=== PATIENT | female | born 1990 | race Caucasian/White ===

== ENCOUNTER 2017-01-05 12:23 | Emergency (ER) | payer SELFPAY ==
[2017-01-05 12:35] VITALS: BP 136/78
--- NOTE | 2017-01-05 12:35 | ED Physician Documentation ---
Skin Rash - HISTORIAN Historian: patient - HPI Stated Complaint: rash Chief Complaint: Skin Rash Front/Back of Body, Lg ([place]): 1 - vesicular patched rash on left side of body lower left back area Onset: days ago (3) Timing: worse Location: other (left lower back ) Identified Cause?: No Where: home Context: Medication Exposure: none Context: Food Exposure: none Context: Other Exposure: other (she has had chicken pox ) - ROS CONST: none CVS/RESP: none GI/: none MS/SKIN/LYMPH: rash - PAST HX Past History: other (gestional Diabetes ) Other History: none Surgeries/Procedures: No Immunizations: referred to PCP, other (worried her child is not UTD on immunizations) Allergies/Adverse Reactions: Allergies Allergy/AdvReac Type Severity Reaction Status Date / Time morphine Allergy Verified 01/05/17 12:36 Home Medications: Ambulatory Orders Medication Instructions Recorded Acyclovir [Zovirax] 800 mg PO DIRECTED #70 tablet 01/05/17 - SOCIAL HX Smoking History: cigarettes Alcohol Use: none Drug Use: none - FAMILY HX Family History: none - VITAL SIGNS Vital Signs: Vital Signs Temp Pulse Resp BP Pulse Ox 98.2 F 81 18 136/78 97 01/05/17 12:50 01/05/17 12:50 01/05/17 12:50 01/05/17 12:50 01/05/17 12:50 - REVIEWED ASSESSMENTS Nursing Assessment Reviewed: Yes Vitals Reviewed: Yes Skin Rash Physical Exam - EXAM General Appearance: no acute distress Skin: warm,dry, other (left lower back with vesicular patchy rash on left lower back/flank area - no drainage noted pain to any touch clothes etc ) Location: other (left lower back ) Character: vesicular Symptoms: tenderness, swelling Respiratory: no resp distress, chest non-tender, breath sounds normal CVS: reg. rate & rhythm, heart sounds nml Abdomen: non-tender Neuro/Psych: oriented x3 Discharge Clincal Impression: Herpes zoster Qualifiers: Herpes zoster complications: without complications Qualified Code(s): B02.9 - Zoster without complications Prescriptions: Acyclovir [Zovirax] 800 mg PO DIRECTED #70 tablet Referrals: Primary Doctor,No [Primary Care Provider] - 2 Days Condition: Stable Disposition: 01 HOME, SELF-CARE Decision to Admit: NO Date of Decison to Admit: 01/05/17 Decision Time: 12:43
== END 2017-01-05 12:50 | disposition home or self-care (01) ==
LOC: ED 12:23
DX: B02.9 Zoster without complications (principal)
CPT/HCPCS: 99283

== ENCOUNTER 2017-01-28 10:56 | Emergency (ER) | payer OTHER ==
[2017-01-28 11:12] VITALS: BP 121/78
--- NOTE | 2017-01-28 11:24 | ED Physician Documentation ---
General Adult - HISTORIAN Historian: patient - HPI Stated Complaint: Left foot pain Chief Complaint: General Adult Onset: days ago (1) Timing: still present Severity: moderate Further Comments: yes (Pt is a 26 yo female with injury to her L foot when a 90 lb child jumped onto her L mid-foot and landed on it with full force with his knee. No ankle pain.) - ROS CONST: no problems EYES/ENT: none CVS/RESP: none GI/: none MS/SKIN/LYMPH: other (L foot pain) - PAST HX Past History: none Surgeries/Procedures: BTL, , cholecystectomy Allergies/Adverse Reactions: Allergies Allergy/AdvReac Type Severity Reaction Status Date / Time morphine Allergy Verified 01/28/17 11:06 Home Medications: Ambulatory Orders Medication Instructions Recorded NK [NK] 01/28/17 - SOCIAL HX Smoking History: cigarettes - FAMILY HX Family History: No - VITAL SIGNS Vital Signs: Vital Signs Temp Pulse Resp BP Pulse Ox 98.1 F 72 16 121/78 98 01/28/17 11:08 01/28/17 11:08 01/28/17 11:08 01/28/17 11:08 01/28/17 11:08 - REVIEWED ASSESSMENTS Nursing Assessment Reviewed: Yes Vitals Reviewed: Yes Progress - Progress Progress: x-ray L foot: neg post-op shoe as desired NSAIDS/Tylenol ED Results Lab/Radiology - Orders Orders: ED Orders Category Date Time Status FOOT 3 VIEWS OR MORE [RAD] Stat Exams 01/28/17 Ordered General Adult Physical Exam - PHYSICAL EXAM GENERAL APPEARANCE: mild distress NECK: normal inspection, supple RESPIRATORY: no resp distress, breath sounds normal CVS: reg rate & rhythm, heart sounds normal BACK: normal inspection SKIN: warm/dry, normal color EXTREMITIES: normal range of motion, other (tenderness over mid metatarsals, no swelling or inflammation) NEURO: oriented X3, motor nml, sensation nml Discharge Clincal Impression: L foot pain Referrals: Primary Doctor,No [Primary Care Provider] - Condition: Good Disposition: 01 HOME, SELF-CARE Decision to Admit: NO Decision Time: 11:45
--- NOTE | 2017-01-28 14:57 | Diagnostic Imaging Report ---
MIKE SYED [facility] [address] [facility] [address] [address] Report Submission Date: Jan 28, 2017 11:42:40 AM CDT Patient Study Name: SHANICE RECINOS Date: Jan 28, 2017 11:21:25 AM CDT Modality Type: CR Gender: F Description: LOWER EXTREMITY : 86 Institution: [facility] Physician: MIKE SYED Examination: Plain film foot History: Injury Findings: 3 views of the foot demonstrates normal cortical margins. No fracture or dislocation. No soft tissue swelling. No joint effusion. Impression: No acute osseous process. Electronically signed on Jan 28, 2017 11:42:40 AM CDT by: Mayo BARRETT
== END 2017-01-28 11:52 | disposition home or self-care (01) ==
LOC: ED 10:56
DX: M79.672 Pain in left foot (principal)
CPT/HCPCS: 73630; 99283

== ENCOUNTER 2018-03-12 23:25 | Emergency (ER) | payer OTHER ==
[2018-03-12 23:44] VITALS: BP 140/88
[2018-03-12] MEDS ORDERED: ONDANSETRON HCL 4 MG TAB.RAPDIS PO ONE (23:58)
[2018-03-12] MEDS ORDERED: HYDROcodone /APAP 5/325 1 EACH TABLET PO ONE (23:58)
--- NOTE | 2018-03-12 23:58 | ED Physician Documentation ---
General Adult - HISTORIAN Historian: patient - HPI Stated Complaint: Left lower back pain Chief Complaint: Low Back Pain/ Injury Additional Information: Intro self as [employer]. pt presents to the ED via POV c/o Back pain since yesterday that started after she leaned over. pain 2/10 worse with movement 10/10. denies trauma. pt reports the pain as stabbing spasms. pt has tried ibuprofen, ice, and heat with the pain. Pt denies numbness or tingling, no loss of bowel or bladder control, denies urinary burning or frequency. pt denies current chest pain, dyspnea, syncope/near syncope, headache, dizziness, visual disturbances, n/v/d, fever/chills, rash, sick contacts, dysuria, trauma. melena or hematochezia, bleeding or easy bruising, change in bowel or bladder function. anxiety or depression. ROS Negative unless otherwise specified. - ROS CONST: no problems. denies: fever, chills EYES/ENT: denies: sore throat, nasal drainage, nasal congestion CVS/RESP: denies: chest pain, shortness of breath, cough GI/: denies: abdominal pain, problems urinating, vomiting, nausea, diarrhea MS/SKIN/LYMPH: back pain NEURO/PSYCH: denies: headache, dizziness, numbness, difficulty walking, anxiety, depression - PAST HX Past History: other Other History: diabetes Type 2, other (hypothyroid, hyperlipidemia anemia. ) Surgeries/Procedures: (x5), cholecystectomy, other (tubal ligation ) Allergies/Adverse Reactions: Allergies Allergy/AdvReac Type Severity Reaction Status Date / Time morphine Allergy Verified 03/12/18 23:53 Home Medications: Ambulatory Orders Medication Instructions Recorded Glimepiride [Amaryl] 4 mg PO BID 03/12/18 Levothyroxine Sodium [Synthroid] 1 tab PO DAILY 03/12/18 Lovastatin 20 mg PO DAILY 03/12/18 Vit/Iron Fum/Folic AC 1 each PO DAILY 03/12/18 [ Tablet] - SOCIAL HX Smoking History: less than 1 pack/day - FAMILY HX Family History: No - VITAL SIGNS Vital Signs: Vital Signs Temp Pulse Resp BP Pulse Ox 98.8 F 76 18 140/88 98 03/12/18 23:30 03/12/18 23:30 03/12/18 23:30 03/12/18 23:30 03/12/18 23:30 - REVIEWED ASSESSMENTS Nursing Assessment Reviewed: Yes Vitals Reviewed: Yes ED Results Lab/Radiology - Orders Orders: ED Orders Category Date Time Status UA [URINALYSIS] Routine Lab 03/12/18 Ordered URINE HCG DAILY Lab 03/12/18 23:45 Uncollected General Adult Physical Exam - PHYSICAL EXAM GENERAL APPEARANCE: no distress EENT: eye inspection normal, ENT inspection normal, pharynx normal, no signs of dehydration, NARCISO, no nystagmus, TM's nml NECK: normal inspection, thyroid normal RESPIRATORY: no resp distress, chest non-tender, breath sounds normal CVS: reg rate & rhythm, heart sounds normal, equal pulses, no murmur, no gallop, PMI nml, no JVD, no friction rub, 24 ABDOMEN: soft, no organomegaly, normal bowel sounds, no distension BACK: no CVA tenderness, other (left lower back pain/spasm ) SKIN: normal color, warm/dry, NR, INT, PAL, DR EXTREMITIES: non-tender, normal range of motion, no evidence of injury, no edema, J, [employer] D[employer] NEURO: oriented X3, motor nml, sensation nml, mood/affect nml, other (able to ambulate without difficulty) Discharge Clincal Impression: Low back strain Qualifiers: Encounter type: initial encounter Qualified Code(s): S39.012A - Strain of muscle, fascia and tendon of lower back, initial encounter UTI (urinary tract infection) Qualifiers: Urinary tract infection type: acute cystitis Hematuria presence: with hematuria Qualified Code(s): N30.01 - Acute cystitis with hematuria Referrals: Primary Doctor,No [REFERRING] - 2 Days Additional Instructions: Flexeril 10 mg: take 1/2 to one tab every 8 hours as needed for muscle spasm. may cause drowsiness, do not drink alcohol, drive, or operate machinery while taking this medication. ibuprofen 600 mg every 6 hours for inflammation. Keflex 500 mg twice a day for 7 days. Increase hydration. 1/2 your weight in ounces daily. this will help prevent Urinary tract infection. seek medical care immediately if difficult to wake, difficulty breathing, feeling faint or fainting, increased rash, chest pain, shortness of breath, or fever not controlled by tylenol/motrin or any concern. Follow up with primary care next week or before if not improving as expected. You will need your urine rechecked after your antibiotic is complete to make sure that the blood in your urine and infection as resolved. PLEASE UNDERSTAND THAT THIS IS AN EMERGENCY EVALUATION FOR YOUR COMPLAINT AND BY NATURE IS LIMITED AND NOT A SUBSTITUTE FOR ONGOING MEDICAL CARE. EVEN THOUGH TEST RESULTS AND TREATMENT PLAN WERE EXPLAINED THERE MAY BE A NEED FOR ADDITIONAL TESTING TO FULLY DETERMINE THE EXTENT OF YOUR ILLNESS/INJURY/OR CONCERN SO YOU SHOULD CONTACT AND OR ESTABLISH WITH A PRIMARY CARE PROVIDER (OR REFERRAL DOCTOR IF APPLICABLE) FOR AN APPOINTMENT SOON POSSIBLE. pt has cpr ambulance driver present Condition: Stable Disposition: 01 HOME, SELF-CARE Decision to Admit: NO Date of Decison to Admit: 03/13/18 Decision Time: 00:05
[2018-03-12] MEDS ORDERED: CYCLOBENZAPRINE HCL 5 MG TABLET PO ONE (23:59)
[2018-03-13 07:59] LABS: APPEARANCE,URINE CLOUDY (CLEAR); COLOR,URINE YELLOW (YELLOW); OCCULT BLOOD,URINE 2+ (NEGATIVE); URINE HCG NEGATIVE (NEGATIVE); UROBILINOGEN URINE 0.2 Eu (0.2-1.0)
== END 2018-03-13 00:20 | disposition home or self-care (01) ==
LOC: ED 23:25
DX: S39.012A Strain of muscle, fascia and tendon of lower back, initial encounter (principal); N30.01 Acute cystitis with hematuria; B96.20 Unspecified Escherichia coli [E. coli] as the cause of diseases classified elsewhere; X58.XXXA Exposure to other specified factors, initial encounter
CPT/HCPCS: 81002; 81025; 87086; 87186; 99283; A9270

== ENCOUNTER 2018-07-16 18:19 | Emergency (ER) | payer OTHER ==
--- NOTE | 2018-07-16 18:43 | ED Physician Documentation ---
Chest Pain - HISTORIAN Historian: patient - HPI Stated Complaint: chest pain Chief Complaint: Chest Pain Additional Information: Patient is a 28-year-old female that presents to the ER with intermittent chest pain x 2 weeks. She describes it as a pressure usually- but today it was sharp and went down her left arm and into her jaw- no diaphoresis- sx's have improved. She has a history HLD, DM2, and hypothyroid. She drinks caffeine. Denies any N/V/D- no recent resp. illnesses. She smokes < 1ppd- denies alcohol or drug use. Onset: hours Timing: gradual onset (intermittent x 2 weeks) Duration: waxing, waning Last known Well Date: 06/30/18 (2 weeks ago) Last Known Well Time: 18:56 (unknown) Last known Well Code/Unknown Code: Unknown Context: activity Severity: moderate Quality: pressure, sharp Chest Pain Radiation: arms (radiation down left arm) Chest Pain Signs/Symptoms: denies: nausea, vomiting, diaphoresis, dyspnea, palpitations Worsened By: exertion, change in position Relieved By: sitting up - ROS CONST: none MS/LYMPH: none GI/: none EYES/ENT: none SKIN/ENDO: none NEURO/PSYCH: none - PAST HX MS risk factors: diabetes Type 2, hyperlipidemia, other (hypothyroid) DVT/PE Risk Factors: other (obesity) TAD/AAA risk factors: none Neuro deficit: none GI disease: none Lung disease: none Surgeries/Procedures: cholecysectomy, other ( x 5, TBL) Immunizations: UTD Allergies/Adverse Reactions: Allergies Allergy/AdvReac Type Severity Reaction Status Date / Time morphine AdvReac Itchy Skin Verified 07/16/18 18:33 Home Medications: Ambulatory Orders Medication Instructions Recorded Glimepiride [Amaryl] 4 mg PO BID 03/12/18 Lovastatin 20 mg PO DAILY 03/12/18 Vit/Iron Fum/Folic AC 1 each PO DAILY 03/12/18 [ Tablet] Aspirin [Daphne] 325 mg PO DAILY 07/16/18 Levothyroxine Sodium [Unithroid] 100 mcg PO DAILY 07/16/18 - SOCIAL HX Smoking History: less than 1 pack/day Alcohol Use: none Drug Use: none - FAMILY HX Family HX: none - VITAL SIGNS Vital Signs: Vital Signs Temp Pulse Resp BP Pulse Ox 97.7 F 75 20 158/84 99 07/16/18 18:19 07/16/18 18:19 07/16/18 18:19 07/16/18 18:19 07/16/18 18:19 ED Results Lab/Radiology - Radiology Radiology Impressions: Chest, PA and lateral HISTORY Chest pain FINDINGS No infiltrate, effusion or pneumothorax is present. Heart size, mediastinum and pulmonary vascularity are normal. IMPRESSION Normal. Electronically signed on Jul 16, 2018 8:19:47 PM CDT by: Sergio Rivera - Orders Orders: ED Orders Category Date Time Status Continuous EKG monitoring Q30M Care 07/16/18 18:27 Active Continuous Pulse Oximetry Q30M Care 07/16/18 18:[address] IV Lock 1T Care 07/16/18 18:27 Active CHEST 2VIEW [RAD] Stat Exams 07/16/18 Ordered CBC/PLATELET/DIFF Routine Lab 07/16/18 18:27 Ordered CMP Routine Lab 07/16/18 18:27 Ordered CREATINE KINASE Routine Lab 07/16/18 18:27 Ordered TROPONIN I (cTnI) Stat Lab 07/16/18 18:27 Ordered EKG WITH COMPARISON Stat Ther 07/16/18 18:27 Ordered Chest Pain Physical Exam - EXAM General Appearance: no acute distress, alert EENT: eye inspection normal, ENT inspection normal, pharynx normal, no signs of dehydration, ANRCISO Neck: nml inspection, no carotid bruit Respiratory: no resp. distress, chest non-tender, nml breath sounds CVS: reg. rate & rhythm, no murmur, no gallop, pulses equal Abdomen: soft, normal bowel sounds Skin: warm/dry, normal color Extremities: non-tender, normal range of motion Neuro: oriented X3, CN's nml as tested, motor nml, sensation nml, mood/affect nml, cognition normal Discharge Clincal Impression: GERD (gastroesophageal reflux disease) Referrals: Dahiana Hastings FNP [Primary Care Provider] - 2 Days Additional Instructions: Cardiac Exam negative Omeprazole 20mg daily OTC Follow up with PCP in the next week Condition: Good Disposition: 01 HOME, SELF-CARE Decision to Admit: NO Decision Time: 20:42
[2018-07-16 18:52] LABS: EOSINOPHILS % 2.8 % (0.0-6.8); MEAN CORPUSCULAR HEMOGLOBIN 29.9 pg (28.0-34.0); MONOCYTES % 5.8 % (0.0-11.0)
[2018-07-16 19:10] LABS: eGFR (Non-African) > 60
[2018-07-16 20:52] VITALS: BP 126/59
--- NOTE | 2018-07-17 05:37 | Diagnostic Imaging Report ---
[facility] [address] [facility] [address] Report Submission Date: Jul 16, 2018 8:19:47 PM CDT Patient Study Name: SHANICE RECINOS Date: Jul 16, 2018 6:37:23 PM CDT Modality Type: DX Gender: F Description: CHEST 2VIEW : 86 Institution: [facility] Physician: [facility] ED Chest, PA and lateral HISTORY Chest pain FINDINGS No infiltrate, effusion or pneumothorax is present. Heart size, mediastinum and pulmonary vascularity are normal. IMPRESSION Normal. Electronically signed on Jul 16, 2018 8:19:47 PM CDT by: Sergio BARRETT
== END 2018-07-16 20:42 | disposition home or self-care (01) ==
LOC: ED 18:19
DX: K21.9 Gastro-esophageal reflux disease without esophagitis (principal)
CPT/HCPCS: 36415; 71046; 80053; 82550; 84484; 85025; 99283; 99284; S1016

== ENCOUNTER 2019-04-27 11:39 | Outpatient (CLI) | payer OTHER ==
--- NOTE | 2019-04-27 16:30 | Diagnostic Imaging Report ---
PATIENT MR#: [id number] PATIENT PATIENT NAME: SHANICE RECINOS DATE OF : 1990 REFERRING PHYSICIAN: Dahiana HAMPTON [place] EXAM DATE: 04/27/2019 ACCESSION NUMBER: [id number] EXAM DESCRIPTION: FOOT 3 VIEWS OR MORE CLINICAL HISTORY: Left foot pain after fall COMPARISON: No study for comparison is available at the time of interpretation. TECHNIQUE: DX left foot, 3 views Osseous structures: The osseous structures are intact with no evidence of fracture. There is no osseo us lesion or periosteal reaction. Joint spaces: The bones are well aligned, without dislocation. No articular surface abnormality is no cristina. Soft tissues: There is normal appearance of the soft tissues with no radiopaque foreign body seen. IMPRESSION: No evidence of acute left foot fracture. Read by: Dr. Jin Lopez Transcribed by: Jin Lopez Transcribed Date: 04/27/2019 4:29:31 PM Electronically signed by: Dr. Jin Lopez Date signed: 04/27/2019 4:29:39 PM
--- NOTE | 2019-04-27 16:40 | Diagnostic Imaging Report ---
PATIENT MR#: [id number] PATIENT PATIENT NAME: SHANICE RECINOS DATE OF : 1990 REFERRING PHYSICIAN: Dahiana Hastings EXAM DATE: 04/27/2019 ACCESSION NUMBER: [id number] EXAM DESCRIPTION: ANKLE 3 VIEWS OR MORE CLINICAL HISTORY: Left ankle pain after fall COMPARISON: No study for comparison is available at the time of interpretation. TECHNIQUE: DX left ankle, 3 views Osseous structures: The osseous structures are intact with no evidence of fracture. There is no osseo us lesion or periosteal reaction. Joint spaces: The bones are well aligned, without dislocation. No articular surface abnormality is no cristina. Soft tissues: There is normal appearance of the soft tissues with no radiopaque foreign body seen. IMPRESSION: No evidence of acute left ankle fracture. Read by: Dr. Jin Lopez Transcribed by: Jin Lopez Transcribed Date: 04/27/2019 4:39:37 PM Electronically signed by: Dr. Jin Lopez Date signed: 04/27/2019 4:39:37 PM
== END 2019-04-27 11:49 ==
LOC: RAD 11:39
PROVIDERS: ATTEND Nurse Practitioner Family
DX: S99.912A Unspecified injury of left ankle, initial encounter (principal); W18.09XA Striking against other object with subsequent fall, initial encounter
CPT/HCPCS: 73610; 73630